=== PATIENT | male | born 1985 | race Caucasian/White ===

== ENCOUNTER 2022-04-23 05:33 | Day surgery (SDC) | payer OTHER ==
[2022-04-20 16:25] LABS: BASOPHILS % (AUTO) 0.6 % (0-1); EOSINOPHILS # (AUTO) 0.3 X10'3 (0-0.9); EOSINOPHILS % (AUTO) 4.5 % (0-6); LYMPHOCYTES # (AUTO) 1.9 X10'3 (1.1-4.8); LYMPHOCYTES % (AUTO) 28.1 % (21-51); MEAN CORPUSCULAR HEMOGLOBIN 31.4 PG (27.0-31.0); MEAN CORPUSCULAR HGB CONC 34.4 g/dL (33.0-36.5); MEAN CORPUSCULAR VOLUME 91.3 FL (78-98); MEAN PLATELET VOLUME 8.6 FL (7.4-10.4); MONOCYTES # (AUTO) 0.6 X10'3 (0-0.9); MONOCYTES % (AUTO) 8.8 % (2-12); NEUTROPHILS # (AUTO) 3.9 X10'3 (1.8-7.7); PRE OP HEMATOCRIT 46.9 % (42.0-52.0); PRE OP HEMOGLOBIN 16.1 g/dL (14.0-17.9); PRE OP PLATELET COUNT 230 X10'3 (140-440); RED BLOOD COUNT 5.14 X10'6 (4.70-6.10); RED CELL DISTRIBUTION WIDTH 13.8 % (11.5-14.5)
[2022-04-20 16:41] LABS: ALBUMIN 4.2 G/DL (3.4-5.0); ALBUMIN/GLOBULIN RATIO 1.1 (1.1-1.5); ALKALINE PHOSPHATASE 41 IU/L (46-116); BLOOD UREA NITROGEN 12 MG/DL (7-18); BUN/CREATININE RATIO 11.2 (5.4-32.0); CALCIUM 9.1 MG/DL (8.5-10.1); CHLORIDE 102 MMOL/L (99-107); CREATININE 1.07 MG/DL (0.60-1.10); PRE OP ALT 38 U/L (30-65); PRE OP ANION GAP 9 (8-16); PRE OP AST 31 U/L (10-37); PRE OP GLUCOSE 97 MG/DL (70-104); PRE OP SODIUM 139 MMOL/L (135-145); TOTAL CARBON DIOXIDE 28.1 MMOL/L (24-32); eGFR 77 ML/MIN
[2022-04-23] VITALS (19 sets, daily range): BP systolic 110–138; BP diastolic 65–91
[~2022-04-23] VITALS: Ht 195.6 cm; Wt 101.8 kg
[~2022-04-23 05:33] MED LIST: NO HOME MEDS; ceFAZolin inj. 2,000 MG in dextrose 5%-water 100 ML IV ONE; famotidine 20mg tablet PO ONE; ringers solution, lacted 1,000 ML IV SCH
[2022-04-23] MEDS ORDERED: LIDOcaine 1% 30ml preserv. free vial ONE (06:45)
[2022-04-23] MEDS ORDERED: BUPIVAcaine 0.5% inj/PF 30 ML ONE (06:45)
[2022-04-23] MEDS ORDERED: sevoflurane 250ml liquid IH ONE (07:45)
[2022-04-23] MEDS ORDERED: midazolam 1 mg/ML 2ml injection ONE (07:52)
[2022-04-23] MEDS ORDERED: fentaNYL /PF 50mcg/ml 5ml ampule ONE (07:53)
[2022-04-23] MEDS ORDERED: BUPIVAcaine 0.5% inj/PF 30 ml vial IJ ONE (08:33)
[2022-04-23] MEDS ORDERED: LIDOcaine 2% (20mg/ml) 5ml vial ONE (09:08)
[2022-04-23] MEDS ORDERED: dexamethasone sod phosphate 4mg/ml inj. ONE (09:08)
[2022-04-23] MEDS ORDERED: rocuronium 10mg/ml inj IV ONE (09:08)
[2022-04-23] MEDS ORDERED: ondansetron/PF 4mg/2ml inj ONE (09:08)
[2022-04-23] MEDS ORDERED: propofol inj 20 ML IV ONE (09:08)
[2022-04-23] MEDS ORDERED: glycopyrrolate 0.2mg/ml inj ONE (09:10)
[2022-04-23] MEDS ORDERED: neostigmine methylsulfate 1 MG/ML 10ml vial ONE (09:10)
--- NOTE | 2022-04-23 09:32 | NUR ---
Received from OR via [facility], accompanied by Anesthesiologist DR OZUNA and report given by Anesthesiolgist. PT PRESNTS WITH PIV 20G RIGHT FOREARM, ABD DRESSING CDI, VSS. Addendum: 04/23/22 at 0900 by Char Galicia RN, RN Amended: Links added.
[2022-04-23] MEDS ORDERED: acetaminophen 1,000mg/100ml IV 100 ML IV PRN (09:35)
[2022-04-23] MEDS ORDERED: morphine 2 MG/ML inj. syringe IV PRN (09:35)
[2022-04-23] MEDS ORDERED: meperidine/PF 25mg/ml syringe IV PRN ×2 (09:35)
[2022-04-23] MEDS ORDERED: hydrALAZINE 20mg/ml inj. IV PRN (09:35)
[2022-04-23] MEDS ORDERED: ondansetron/PF 4mg/2ml inj IV PRN ×2 (09:35)
[2022-04-23] MEDS ORDERED: ringers solution, lacted 1,000 ML IV SCH ×2 (09:35)
[2022-04-23] MEDS ORDERED: proCHLORperazine 10 MG/2 ml inj IV PRN (09:35)
[2022-04-23] MEDS ORDERED: ketorolac trometh. 30mg/ml inj. IV ONE (09:35)
[2022-04-23] MEDS ORDERED: labetalol 20mg/4ml (5mg/ml) syringe IV PRN (09:35)
[2022-04-23] MEDS ORDERED: morphine 4 MG/ML inj SYRINge IV PRN (09:35)
[2022-04-23] MEDS: meperidine/PF 25mg/ml syringe IV PRN ×2 (09:41→10:22)
[2022-04-23] MEDS ORDERED: HYDROcodone/acetaminophen 5mg/325mg tablet PO PRN (09:45)
--- NOTE | 2022-04-23 12:34 | NUR ---
PT BLADDER SCANNED WITH GREATER THEN 149 IN BLADDER. WILL HAVE PT DRINK MORE WATERANF IV FLUIDS RUNNING WILL RE-EVALUATE IN 30 MINUTES.
--- NOTE | 2022-04-23 13:55 | NUR ---
PT BLADDER SCANNED WITH 250MLS IN BLADER. PT UP AND AMBULATED 300 FETT. PT URINATED 50MLS.
--- NOTE | 2022-04-23 14:53 | NUR ---
PT HAS URINATED 2 TIMES, WITH A TOTAL OF 60MLS IN URINAL. PT BLADDER SCANNED WITH LESS THAN 227 MLS.
--- NOTE | 2022-04-23 15:12 | NUR ---
ALL DISCHARGE CRITERIA HAS BEEN MET. VSS, PAIN AT A TOLERABLE LEVEL, VOIDING AND ABLE TO SAFELY AMBULATE AND TRANSFER SELF. IV TAKEN OUT WITHOUT ANY COMPLICATIONS. ALL DISCHARGE INSTRUCTIONS COVERED WITH PATIENT AND ALL QUESTIONS ANSWERED. PATIENT TAKEN OUT VIA WHEELCHAIR TO PERSONAL VEHICLE WHERE FAMILY/FRIEND DROVE PATIENT HOME.
== END 2022-04-23 15:12 | disposition home or self-care (01) ==
LOC: PAS 05:33
PROVIDERS: ATTEND Surgery
DX: K42.9 Umbilical hernia without obstruction or gangrene (principal); K40.20 Bilateral inguinal hernia, without obstruction or gangrene, not specified as recurrent; Z79.899 Other long term (current) drug therapy; Z98.890 Other specified postprocedural states
CPT/HCPCS: 36415; 49585; 49650; 80053; 82948; 85025; C1781; J0131; J0690; J1100; J1885; J2175; J2250; J2405; J2704; J2710; J3010; J3490; J7030; J7060; J7120; S0020; S2900; Z7506; Z7508; Z7512; A4215; A4615; A4618